=== PATIENT | female | born 1945 | race Asian ===

== ENCOUNTER 2019-04-12 11:23 | Inpatient (IN) | payer OTHER, MEDICAID ==
[~2019-04-12] VITALS: Ht 157.5 cm; Wt 49.9 kg
--- NOTE | 2019-04-12 11:56 | NUR ---
PATIENT AAOX3 BIB [facility] WITH C/O ABDOMINAL PAIN X 5 DAYS. PATIENT IS MANDARIN SPEAKING ONLY- SON IS BEDSIDE. SON STATES MOM HASN'T BEEN FEELING WELL AND HAS NAUSEA BUT NO VOMITING. ABD SOFT, NON DISTENDED, TENDER ON PALPATION. LAST BM WAS THIS MORNING. BREATHING E/U- PATIENT C/O SOB- SATS IN LOW 90S UPON ARRIVAL. PT PLACED ON 3.5 LITERS OF O2 VIA NC. LUNGS CLEAR UPPER AND LOWER LOBES, PT C/O PRODUCTIVE COUGH FOR FOR A FEW DAYS. SKIN WARM, DRY AND INTACT. NO OTHER SS OF DISTRESS NOTED. PT PLACED ON ALL MONITORS FOR FURTHER OBSERVATION. AWAITING MSE.
[2019-04-12 12:53] LABS: CARBON DIOXIDE 24.5 mmol/L (21-32); CHLORIDE SERUM 96 mmol/L (98-107); CREATININE SERUM 0.8 mg/dL (0.6-1.0); GLUCOSE SERUM 152 mg/dL (74-106); POTASSIUM SERUM 3.8 mmol/L (3.5-5.1); SODIUM SERUM 132 mmol/L (136-145)
[2019-04-12 12:57] LABS: ALBUMIN 3.5 g/dL (3.4-5.0); ALKALINE PHOSPHATASE 197 U/L (46-116); ALT/SGPT 61 U/L (14-59); AST/SGOT 74 U/L (15-37); BILIRUBIN TOTAL 0.68 mg/dL (0.20-1.00); LIPASE 49 IU/L (73-393); TOTAL PROTEIN, SERUM 7.3 g/dL (6.4-8.2)
[2019-04-12 12:59] LABS: AMYLASE 17 U/L (25-115)
[2019-04-12 13:02] LABS: BASOPHIL % 0 % (0-2); PLATELET COUNT 195 x10^3mcL (130-400); RED CELL DISTRIBUTION WIDTH 12.9 % (11.5-14.5)
--- NOTE | 2019-04-12 13:10 | NUR ---
PT TAKEN TO CT.
--- NOTE | 2019-04-12 13:32 | NUR ---
PATIENT BROUGHT BACK FROM CT-- BREATHING E/U-- SON BEDSIDE. WILL CONTINUE TO MONITOR.
[2019-04-12 14:16] LABS: UA SPECIFIC GRAVITY 1.015 (1.005-1.035); microscopic required? YES; urine erythrocyte NEGATIVE (NEGATIVE)
--- NOTE | 2019-04-12 14:21 | NUR ---
PT RESTING IN BED WITH NO SIGNS OF DISTRESS AT THIS TIME.
--- NOTE | 2019-04-12 14:59 | NUR ---
U/S BEING DONE BEDSIDE
--- NOTE | 2019-04-12 14:59 | NUR ---
ASSISTED PATIENT ON BED BURKETT-- TOLERATED WELL. WILL CONTINUE TO MONITOR.
--- NOTE | 2019-04-12 16:49 | NUR ---
RECIEVED VERBAL FROM DR FRIAS FOR MED SURG ADMIT ORDERS FOR PATIENT.
[2019-04-12] MEDS ORDERED: LOSARTAN POTASS50 M1 PO (16:55)
[2019-04-12] MEDS ORDERED: ALENDRONATE SOD70 M3 PO (16:55)
[2019-04-12] MEDS ORDERED: LYRICA50 M1 PO (16:56)
[2019-04-12] MEDS ORDERED: TRILIPIX135 M1 PO (16:56)
--- NOTE | 2019-04-12 17:39 | NUR ---
REPORT GIVEN TO HOWARD BARTLETT FOR CONTINUED CARE OF PATIENT.
--- NOTE | 2019-04-12 18:02 | NUR ---
RECEIVED PT FROM ED VIA GUERNEY, CAME IN DUE TO ABDOMINAL PAIN/NAUSEA/VOMITING AND POOR APPETITE X3-4 DAYS. AAXO4. ABLE TO FOLLOW COMMANDS. NO SOB NOTED, LUNG SOUNDS DIMINISHED ON AUSCULTATION, O2 SAT-98%, ON 2LPM/NC. W/ PRODUCTIVE COUGH, ABLE TO EXPECTORATE WHITE PHLEGM, SCANT IN AMOUNT. C/O DRY MOUTH. DENIES CHEST PAIN/PRESSURE. STATED THAT SHE HAS 2/10 EPIGASTRIC PAIN DESCRIBED ACHING AND UNCOMFORTABLE. DENIES NAUSEA/VOMITING. BOWEL SOUNDS ACTIVE. ABDOMEN IS SOFT. W/ PERIODS OF URINE INCONTINENT. 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 C/O BACK PAIN WORSE ON MOVEMENT, GENERALIZED WEAKNESS NOTED. IV SITE ON THE LAC IS PATENT AND INTACT. SIDE RAILS UPX2. CALL LIGHT ON REACH. HOB ELEVATED AT 30 DEG. PT'S SON AT BEDSIDE. ENDORSED TO PRIMARY NURSE TRI FOR CONTINUITY OF CARE
[2019-04-12 18:28] VITALS: BP 143/89
[2019-04-12 18:32] VITALS: Ht 157.5 cm; Wt 49.9 kg
--- NOTE | 2019-04-12 18:46 | NUR ---
PATIENT RESTING IN BED AT THIS TIME WITH FAMILY MEMBER TRANSLATING AT BEDSIDE. NO COMPLAINTS. STARTED IV FLUIDS. CALL LIGHT WITHIN REACH, WILL ENDORSE TO HOISTER
[2019-04-12 19:48] VITALS: BP 116/73
--- NOTE | 2019-04-12 21:00 | NUR ---
RECEIVED PT IN BED AAOX4 PT DENY PAIN AT THE MOMENT , ABD SOFT BS ABD TENDER TO TOUCH , BS ACTIVE X4 , LUNG SOUNDS DEMINISHED PRODUCTIVE COUGH NOTED, ON 2L N/C NO RESP DISTRESS NOTED, PIV INTACT INFUSING WELL . CALL LIGHT WITHIH PT'S REACH . WILL CON.T TO MONITOR PT CLOSELY.
[2019-04-13 05:07] VITALS: BP 107/69
[2019-04-13 06:41] LABS: ALKALINE PHOSPHATASE 146 U/L (46-116); ALT/SGPT 49 U/L (14-59); AST/SGOT 57 U/L (15-37); BILIRUBIN TOTAL 0.5 mg/dL (0.20-1.00); CALCIUM 7.5 mg/dL (8.5-10.1); CARBON DIOXIDE 21.7 mmol/L (21-32); CHLORIDE SERUM 104 mmol/L (98-107); CREATININE SERUM 0.8 mg/dL (0.6-1.0); GLUCOSE SERUM 98 mg/dL (74-106); SODIUM SERUM 139 mmol/L (136-145); TOTAL PROTEIN, SERUM 6.6 g/dL (6.4-8.2)
--- NOTE | 2019-04-13 07:00 | NUR ---
Received report from advertising consultant nurse patient a&o x4 azeri speaking brother at bedside for translation. IV on LAC patent and intact PT denies any pain at this time. CHG wipes complete OR checklist done. Waiting for surgeon consult. Patient NPO since 1800 yesterday. Patient denies chest pain at this time. All questions and concerns addressed. Assessment complete and documented. Bed inlowest position and call light within reach. Will continue to monitor.
[2019-04-13 07:15] LABS: ALBUMIN 2.7 g/dL (3.4-5.0)
[2019-04-13 07:32] LABS: BASOPHIL % 0.3 % (0-2); PLATELET COUNT 177 x10^3mcL (130-400); RED CELL DISTRIBUTION WIDTH 13.1 % (11.5-14.5)
--- NOTE | 2019-04-13 08:00 | NUR ---
REPORT GIVEN TO OR NURSE
[2019-04-13 08:11] VITALS: BP 103/68
--- NOTE | 2019-04-13 08:33 | NUR ---
DR CARVAJAL AT BEDSIDE EXPLAINIG PROCEDURE USING BAR EXAMINER PHONE.
--- NOTE | 2019-04-13 08:50 | NUR ---
PATIENT WENT TO OR FOR PROCEDURE VIA GURNEY WITH TECH
--- NOTE | 2019-04-13 11:45 | NUR ---
PATIENT BACK FROM PROCEDURE V/S 110/72 HR 62 02 92% 2L NC DENIES SOB SAT PATIENT ALL THE WAY UP AND INSTRUCTED HER TO TAKE DEEP BREATHES, RR 17 TEMP 98.6 07/16 PAIN OFFERED MED PER MAR FOR MODERATE PAIN PATIENT REFUSED STATED "IT'S OK" REPOSITIONED PATIENT AND DIMMED LIGHTS FOR COMFORT. BED IN LOWEST POSITION CALL LIGHT WITHIN REACH. WILL CONTINUE TO MONITOR. SON AT BEDSIDE.
[2019-04-13 12:15] VITALS: BP 96/57
--- NOTE | 2019-04-13 13:45 | NUR ---
PATIENT LYING IN BED EATING. PATIENT DENIES ANY PAIN AT THIS TIME. ALL NEEDS ATTENDED TO AT THIS TIME. BED IN LOWEST POSITION CALL LIGHT WITHIN REACH. WILL CONTINUE TO MONITOR.
--- NOTE | 2019-04-13 14:00 | NUR ---
PATIENT LYING IN BED WITH DAUGHTER AT BEDSIDE. PATIENT C/0 5/10 PAIN ADMINISTERED MORPHINE FOR MODERATE PAIN PER MAR. PATIENT TOLERATED WELL NO ADVERSE REACTIONS NOTED. WILL REASSESS PAIN IN 30 MIN. ALL NEEDS ATTENDED TO BED IN LOWEST POSITION CALL LIGHT WITHIN REACH. WILL CONTINUE TO MONITOR.
--- NOTE | 2019-04-13 16:05 | NUR ---
INSTUCTED PATIENT ON INCENTIVE SPIRAOMETER WITH DAUGHTERS HELP. PATIENT DEMONSTRATED PROPER USE. ALL NEEDS ATTENDED TO AT THIS TIME. PATIENT DENIES ANY PAIN AT THIS TIME. ALL NEEDS ATTENDED TO. BED IN LOWEST POSITION CALL LIGHT WITHIN REACH. WILL CONTINUE TO MONITOR.
[2019-04-13 16:35] VITALS: BP 103/59
--- NOTE | 2019-04-13 18:30 | NUR ---
PATIENT LYING IN BED WITH EYES CLOSED DENIES ANY PAIN AT THIS TIME. PER DR REQUEST FOR REPEAT CHEST X RAY DUE TO CONGESTED COUGH DR SHADE RAJAN FOR AM WILL PROCEED WITH ORDER. ALL QUESTIONS AND CONCERNS ADDRESSED AT THIS TIME. BED IN LOWEST POSITION CALL LIGHT WITHIN REACH. WILL ENDORSE CARE TO NIGHT NURSE. IN PATENT ON LAC NO REDNESS OR EDEMA. PATIENT ON 2L NC NO SOB NOTED.
--- NOTE | 2019-04-13 19:30 | NUR ---
PT RECIEVED FROM DAY NURSE. PT RSTING IN BED AT THIS TIME. FAMILY AT BEDSIDE. DENIES PAIN OR DISCOMFORT. A/O X4, CALM AND COOPERATIVE. MED/SURG, DENIES CP, NV, DIZZINESS, OR PALAPATATIONS. BREATHING E/U ON 2L NC. DENIES SOB AT THIS TIME. ABD SOFT AND ROUND, DENIES PAIN TO PALPATION. GENERALIZED WEAKNESS, AMBULATES WITH WALKER AT HOME. 4 SURGICAL INC TO ABD, COVERED WITH DERMABOND,CDI. LAC IV. DCI. BED AT LOWEST POSITION. CALL LIGHT WITHIN REACH. WILL CONTINUE TO MONITOR.
[2019-04-13 21:03] VITALS: BP 115/73
--- NOTE | 2019-04-14 | NUR ---
PT RESTING IN BED AT THIS TIME. DENIES PAIN OR DISCOMFORT. BREATHING E/U ON 2L NC. BED AT LOWEST POSITION. CALL LIGHT WITHIN REACH. WILL CONTINUE TO MONITOR.
[2019-04-14 04:37] VITALS: BP 113/89
[2019-04-14 06:37] LABS: BASOPHIL % 0.1 % (0-2); PLATELET COUNT 185 x10^3mcL (130-400); RED CELL DISTRIBUTION WIDTH 13.4 % (11.5-14.5)
--- NOTE | 2019-04-14 06:41 | NUR ---
PT RESTING IN BED AT THIS TIME. DENIES PAIN RO DISCOMFORT. BREATHIGN E/U ON 2L NC. NO SIGNS OF ACUTE DISTRESS AT THIS TIME. ALL NEEDS AND CONCERNS ADDRESSED THIS SHIFT. BED AT LOWEST POSITION. CALL LIGHT WITHIN REACH. WILL CONTINUE TO MONITOR.
--- NOTE | 2019-04-14 07:00 | NUR ---
RECEIVED REPORT AT BEDSIDE BY DAYTON LAWRENCE, PT RESTING IN BED IN NO ACUTE DISTRESS
[2019-04-14 07:07] LABS: CALCIUM 7.7 mg/dL (8.5-10.1); CARBON DIOXIDE 21.2 mmol/L (21-32); CHLORIDE SERUM 107 mmol/L (98-107); CREATININE SERUM 0.6 mg/dL (0.6-1.0); GLUCOSE SERUM 120 mg/dL (74-106); MAGNESIUM 1.7 mg/dL (1.8-2.4); SODIUM SERUM 138 mmol/L (136-145)
--- NOTE | 2019-04-14 07:26 | NUR ---
PT RESTING IN BED, IN NO ACUTE DISTRESS, VERBAL, MATTHIAS TO MAKE NEEDS KNOWN, CALM AND COOPERATIVE, LOW FAT DIET, AXOX4, NO FACIAL DROOP/SLURRED SPEECH, PERRLA, NO REDNESS/DRAINAGE, DENIED HAYES/DIZZINESS, RESP EVEN AND NON-LABORED, 2L/MIN, NC, 96%, LUNG DIM BLL, EPISODES OF PRODUCTIVE COUGH, CHEST RISE SYMMETRICALLY, MEDSURG, DENIED CP/PALPITATION, DENIED PAIN/DISCOMFORT, ABD FLAT AND NON-TENDER TO TOUCH, BS ACTIVE X 4, NOTED PASSING GAS AND BURP, NO BM AT THIS TIME, PALP PULSES, CAP REFILL <2S, SKIN C/D/W, NON-AMBULATORY IN HOSPITAL, USED FWW AT HOME, SEE SKIN ASSESSMENT, EQUAL HAND METAPHYSICIAN, INCONTINENT AT TIMES, IV PATENT AND FLUSHING WELL, DRESSING CDI, HEPLOCKED, STANDARD PRECAUTION, ALL NEEDS ADDRESSED, SAFERTY PROTOCOL FOLLOWED, CONTINUE TO MONITOR
--- NOTE | 2019-04-14 09:06 | NUR ---
AM MEDs GIVEN PER MD ORDER VIA EMAR, TOLERATED WELL, NO ASE NOTED AT THIS TIME, EDUCATE DPT R/T MEDs, ASE AND MONITOR, VERBALLY UNDERSTANDING, NO FURTHER CONCERN NEEDED AT THIS TIME, SAFETY PROTOCOL FOLLOWED, CONTINUE TO MONITOR
[2019-04-14 09:19] VITALS: BP 144/72
--- NOTE | 2019-04-14 09:29 | NUR ---
PT REFUSED CXR X 2 TIMES, SON AT BEDSIDE, CHARGE NURSE JOSSE MADE AWARE
--- NOTE | 2019-04-14 10:19 | NUR ---
VOID X 1, SON AT BEDSIDE, RA, TOLEARTED WELL, 93%, EPISODES OF COUGH, DENIED PAIN/ DISTRESS, CONTINUE TO MONITOR
--- NOTE | 2019-04-14 12:01 | NUR ---
BM X 1, SMALL, REPORTED NO PAIN/DISCOMFORT AT THIS TIME, SON AT BEDSIDE, ALL NEEDS ADDRESSED, SAFETY PROTOCOL FOLLOWED, CONTINUE TO MONITOR
[2019-04-14 12:13] VITALS: BP 108/79
--- NOTE | 2019-04-14 12:15 | NUR ---
PT REPORTED PASSING GAS, NO BM AT THIS TIME, REPORT NO DISCOMFRT/PAIN, REFUSED TO GET UP AND USE BSC, BEDPAN USED PER PT REQUEST, SON AT BEDSIDE MADE AWARE, CHARGE NURSE JOSSE MADE AWARE
--- NOTE | 2019-04-14 13:45 | NUR ---
DR CROWLEY MADE AWRE OF PT UPDATED CURRENT CONDITION, REFUSAL OF CXR AND TACHYCARDIA, SAID WILL SEE PT AND MADE DECISION LATER, CHARGE NURSE JOSSE MADE AWARE, SON AT BEDSIDE MADE AWARE AND TRANSLATE TO PT, PT VERBALLY UNDERSTANDING
--- NOTE | 2019-04-14 14:38 | NUR ---
PHYSICAL THERAPY NOTE ATTEMPTED FOR PHYSICAL THERAPY EVAL, PATIENT REFUSED EVAL SECONDARY PAIN AND DIZZINESS, SON AT THE BED SITE ENCOURAGED HER FOR OOB; PATIENT REFUSED. ENRIQUE RN MADE AWARE.
--- NOTE | 2019-04-14 16:03 | NUR ---
PT REFUSED TO USE I.S., ENCOURAGED AND EXPLAINED TO PT BENEFIT OF USING I.S. TO PREVENT PNA, STILL REFUSED, SON AT BEDSIDE, WILL CONTINUE TO EDUCATE AND ENCOURAGE PT TO USE I.S., CHARGE NURSE JOSSE MADE AWARE
--- NOTE | 2019-04-14 16:24 | NUR ---
SEEN BY DR TAN, NEW ORDER OBTAINED, PT AND SON AT BEDSIDE MADE AWARE, QUESTION ASKED AND ANSWERED, NO FURTHER CONCERN NEEDED WHEN ASKED, PT RESTING IN BED IN NO ACUTE DISTRESS, CONTINUE TO MONITOR
--- NOTE | 2019-04-14 16:46 | NUR ---
PT RESTING IN BED, IN NO ACUTE DISTRESS, SON AND PT MADE AWARE OF NEW ORDER D/T PT REFUSED PT EVAL, PT REFUSED I.S., ENCOURAGED TO USE I.S. FOR PNA PREVENTION, STILL REFUSED, DR CROWLEY MADE AWARE, ALL NEEDS ADDRESSED AT THIS TIME, SAFETY PROTOCOL FOLLOWED, CONTINUE TO MONITOR
[2019-04-14 16:47] VITALS: BP 119/68
--- NOTE | 2019-04-14 17:18 | NUR ---
PT RESTING IN BED, IN NO ACUTE DISTRESS, SON AT BEDSIDE, VERBAL, ABLE TO MAKE NEEDS KNOWN, STILL REFUSED TO USE I.S. PER MD ORDER, WILL CONTINUE TO EDUCATE AND ENCOURAGE PT, IV PATENT AND FLUSHING WELL, DRESSING CDI, RESP EVEN, NO SOB AT THIS TIME, SKIN C.D.W, ALL NEEDS ADDRESSED, SAFETY PROTOCOL FOLLOWED, WILL ENDORSE TO ONCOMING RN
--- NOTE | 2019-04-14 18:13 | NUR ---
PT REPORTED N/V, REFUSED TO BE MEDICATED W/ PRN MEDS PER MD ORDER VIA EMAR, EDUCATED PT BENEFIT OF HAVING MEDICATION TO RELIEF DISCOMFORT, STILL REFUSED, SON AT BEDSIDE MADE AWARE, CHARGE NURSE JOSSE MADE AWARE, CONTINUE TO MONITOR
--- NOTE | 2019-04-14 19:30 | NUR ---
PT RECIEVED FROM DAY NURSE. PT RESTING IN BED AT THIS TIME. STATES FEELINGS OF N/V. WILL MEDICATE WITH PRN ZOFRAN. A/O X4, CALM AND COOPERATIVE. PT MS, DENIES CP, DIZZINESS, AND PALPATATIONS. PALPABLE PULSES, NO EDEMA NOTED AT THIS TIME. BREATHING E/U, AUDIBLE WHEEZE NOTICED. ON 2L NC, DENIES SOB. PRODUCTIVE COUGH PRESENT AT THIS TIME. ABD SOFT AND ROUND, S/P [employer] DAY TWO. 4 INCISIONS NOTED, COVERED WITH DERMABOND. CDI. IV TO LAC. CDI. BED AT LOWEST POSITION. CALL LIGHT WITHIN REACH. WILL CONTINUE TO MONITOR.
[2019-04-14 20:08] VITALS: BP 132/87
--- NOTE | 2019-04-15 00:30 | NUR ---
PT DAUGHTER AT BEDSIDE REQUESTING CHEST XRAY FOR PATIENT. INFORMED PT MD WILL BE NOTIFIED IN THE MORNING. PT RESTING IN A POSITION OF COMFORT AT THIS TIME. WILL CONTINUE TO MONITOR.
[2019-04-15 05:50] VITALS: BP 127/79
--- NOTE | 2019-04-15 06:23 | NUR ---
PT RESTING IN BED AT THIS TIME. DENIES PAIN OR DISCOMFORT. NO SIGNS OF ACUTE DISTRESS NOTED. ALL NEEDS AND CONCERNS ADDRESSED THIS SHIFT. WILL ENDORSE TO DAY NURSE.
[2019-04-15 07:06] LABS: PLATELET COUNT 246 x10^3mcL (130-400); RED CELL DISTRIBUTION WIDTH 13.5 % (11.5-14.5)
[2019-04-15 07:11] LABS: BASOPHIL % 0 % (0-2)
--- NOTE | 2019-04-15 07:30 | NUR ---
PATIENT LYING IN BED A&O X4, DENIES SOB NO S/S OF RESPIRATORY DISTRESS, RUL FINE CRACKELS AUSCULTATED LEFT LOBE WHEEZES HEARD THROUGHOUT. CONGESTED COUGH NOTED CLEARED BY PATIENT. ON 2L NC 93% PENDING REPEAT CHEST XRAY. PATIENT REFUSES TO MOVE SCD APPLIED WILL ADMINISTER LOVENOX PER MAR. GENERALIZED WEAKNESS NOTED. ABD SOFT AND FLAT ACTIVE SOUNDS HEARD. 4 INC ON ABD WITH DERMABOND C,D,I. IV ON LAC INTACT CLEAN AND DRY. ALL NEEDS ATTENDED TO AT THIS BED IN LOWEST POSITION CALL LIGHT WITHIN REACH. WILL CONTINUE TO MONITOR.
[2019-04-15 07:44] LABS: ALBUMIN 2.5 g/dL (3.4-5.0); ALKALINE PHOSPHATASE 113 U/L (46-116); ALT/SGPT 38 U/L (14-59); AST/SGOT 47 U/L (15-37); CALCIUM 8.1 mg/dL (8.5-10.1); CHLORIDE SERUM 105 mmol/L (98-107); CREATININE SERUM 0.5 mg/dL (0.6-1.0); GLUCOSE SERUM 107 mg/dL (74-106); POTASSIUM SERUM 3.4 mmol/L (3.5-5.1); SODIUM SERUM 138 mmol/L (136-145); TOTAL PROTEIN, SERUM 6.2 g/dL (6.4-8.2)
[2019-04-15 08:25] VITALS: BP 151/86
--- NOTE | 2019-04-15 09:04 | NUR ---
ADMINISTERED SCHEDULED MED PER JUL PATIENT TOLERATED WELL NO ADVERSE REACTIONS NOTED. PATIENT REFUSED TO EAT BREAKFAST STATED "I ONLY EAT ITALIAN FOOD" OFFERED DIFFERENT CHOICES PATIENT REFUSED ALL. PATIENT DENIES SOB AT THIS TIME. ENCOURAGED PATIENT TO SIT UP AND MOVE PATIENT REFUSED ALL. PATIENT DOES REPOSITION SELF INDEPENDENTLY. ALL NEEDS ADDRESSED AT THIS TIME. BED IN LOWEST POSITION CALL LIGHT WITHIN REACH. SON AT BEDSIDE. WILL CONTINUE TO MONITOR.
[2019-04-15 12:00] VITALS: BP 121/68
--- NOTE | 2019-04-15 12:01 | NUR ---
PATIENT LYING IN BED DENIES ANY PAIN OR SOB. ASSISSTED PATIENT TO REPOSITION. PATIENT TOLERATED WELL. SON AT BEDSIDE. BED IN LOWEST POSITION CALL LIGHT WITHIN REACH. ALL NEEDS ATTENDED TO. WILL CONTINUE TO MONITOR.
--- NOTE | 2019-04-15 13:05 | NUR ---
X RAY COMPLETE PATIENT TOLERATED WELL
--- NOTE | 2019-04-15 16:01 | NUR ---
PATIENT STANDING UP WITH WALKER NO S/S OF DISTRESS NOTED. PATIENT TOLERATING WELL. C/O NAUSEA ADVISED PATIENT TO RELAX AND BREATHE THROUGH. PATIENT STEADY AND GENERALIZED WEAKNESS NOTED. ALL NEEDS ATTENDED TO AT THIS TIME. BED IN LOWEST POSITION CALL LIGHT WITHIN REACH. WILL CONTINUE TO MONITOR.
[2019-04-15 16:33] VITALS: BP 122/66
--- NOTE | 2019-04-15 18:31 | NUR ---
PATIENT LYING IN BED WITH EYES CLOSED PATIENT C/O ABD DISCOMFORT OFFERRED PAIN MED PER MAR PATIENT REFUSED. REPOSITIONED PATIENT AN DDIMMED LIGHTS FOR COMFORT. IV ON LAC PATENT AND INTACT NO REDNESS OR EDEMA NOTED. NO S/S OR RESPIRATORY DISTRESS NOTED . PATIENT DENIES SOB AT THIS TIME. ALL NEEDS ATTENDED TO. SAFETY PRECAUTIONS IN PLACE SON AT BEDSIDE. WILL ENDORSE CARE TO [facility].
--- NOTE | 2019-04-15 19:54 | NUR ---
WILL BEATRICE RECEIVED AWAKE IN BED, FAMILY AT BEDSIDE VERY SUPPORTIVE OF PATIENT'S CURRENT PLAN OF CARE. RESPIRATION EVEN AND UNLABORED. IV SITE AT THE LAC LEAKING AND SWOLLEN, IV REMOVED ANF PRESSURE DRESSING APPLIED. RESTART A NEW IV ACCESS TO TJE RIGHT FOREARM USING G#22 ON FIRTS ATTENPT WITH GOOD BLOOD FLOW REURN. N ATBN OVPB FOR MANAGEMENT OF UTI AND PNEUMONIA ORDERED.
[2019-04-15 21:27] VITALS: BP 112/65
--- NOTE | 2019-04-15 23:00 | NUR ---
IV ACCESS AT THE LAC LEAKING WITH REDNESS AND SWIOLLEN WITH DISCOMFORT. NEW IV ACCESS STARTED AT THE RIGHT LOWER FOREARM WITH GOOD BLOOD FLOW RETURN. PT TOLERATED PROCEDURE WELL.
--- NOTE | 2019-04-16 | NUR ---
EYES CLOSED, NO FACIAL GRIMACING NOTED. RESPIRATION EVEN AND UNLABORED. ABLE TO SLEEP AT SHORT INTERVAL. CALL LIGHT WITHIN REACH.
[2019-04-16 05:42] VITALS: BP 122/65
--- NOTE | 2019-04-16 05:49 | NUR ---
NO ADVERSE REACTION NOTED FROM ATB THERAPY. ENCOURAGE DO DEEP BREATHING AND COUGHING EXERCISES, PT RELUCTANT TO DO SO. KEPT CLEAN AND DRY. ALL NEEDS ATTENDED.
--- NOTE | 2019-04-16 08:10 | NUR ---
REPORT TAKEN FROM MANAGER INVENTORY MANAGEMENT NURSE AT THE BEDSIDE, PATIENT DOES NOT SPEAK TANZANIAN, ABLE TO MAKE NEEDS KNOWN WITH HAND GESTURES. PATIENT ON 4 LITERS OF O2 AT THIS TIME, ENCOURAGED TO AMBULATE AND TAKE DEEP BREATHS. PATIENTS O2 SAT IS 91 AT THIS TIME, WILL CONTINUE TO MONITOR.
[2019-04-16 08:25] LABS: CALCIUM 8.3 mg/dL (8.5-10.1); CARBON DIOXIDE 23.8 mmol/L (21-32); CHLORIDE SERUM 106 mmol/L (98-107); CREATININE SERUM 0.6 mg/dL (0.6-1.0); GLUCOSE SERUM 113 mg/dL (74-106); POTASSIUM SERUM 3.5 mmol/L (3.5-5.1); SODIUM SERUM 141 mmol/L (136-145)
[2019-04-16 08:27] LABS: BASOPHIL % 0.1 % (0-2); PLATELET COUNT 271 x10^3mcL (130-400)
[2019-04-16 08:45] VITALS: BP 120/65
[2019-04-16 11:06] VITALS: BP 120/65
[2019-04-16 11:11] LABS: BILIRUBIN DIRECT 0.15 mg/dL (0.0-0.2); BILIRUBIN TOTAL 0.4 mg/dL (0.20-1.00)
[2019-04-16 11:13] LABS: ALBUMIN 2.4 g/dL (3.4-5.0)
[2019-04-16 12:30] VITALS: BP 120/80
[2019-04-16 17:03] VITALS: BP 119/71
--- NOTE | 2019-04-16 19:20 | NUR ---
RECEIVED REPORT FROM KATIE. ASSUMING ALL CARE
[2019-04-16 21:13] VITALS: BP 135/77
--- NOTE | 2019-04-16 21:28 | NUR ---
PT C/O NAUSEA, PT MEDICATED WITH ZOFRAN 4 MG IVP PER EMAR
--- NOTE | 2019-04-16 21:31 | NUR ---
PT C/O ACHING BACK PAIN RATED 7/10. PT MEDICATED WITH NORCO PER EMAR.
--- NOTE | 2019-04-17 00:15 | NUR ---
PT IS SLEEPING, EASILY AROUSABLE. BREATHING IS E/U ON 4 LPM VIA NC. RISE AND FALL OF CHEST SYMMETRIC. NO S/S OF ACUTE DISTRESS NOTED. WILL CONT TO MONITOR
[2019-04-17 05:02] VITALS: BP 141/72
--- NOTE | 2019-04-17 06:44 | NUR ---
PT IS SLEEPING, EASILY AROUSABLE TO VERBAL STIMULI. BREATHING IS E/U ON 4 L VIA NC. RISE AND FALL OF CHEST SYMMETRIC. RW IV INTACT/SECURED, SALINE LOCKED. NO S/S OF ACUTE DISTRESS NOTED. BED IN LOW POSITION. CALL LIGHT IN REACH. WILL CONT TO MONITOR
--- NOTE | 2019-04-17 07:15 | NUR ---
RECEIVED PT FROM NIGHT NURSE. PT IS LAYING DOWN IN BED WITH HOB UP RESTING WITH EYES CLOSED. PT LOOKS TO BE IN NO ACUTE DISTRESS AT THIS TIME. RESPIRATIONS EVEN AND UNLABORED ON 4L NC. SURGICAL INCISIONS TO ABD ARE CDI. IV SITE PATENT WITH NO SIGNS OF ERYTHEMA OR SWELLING. CALL LIGHT WITHIN REACH. WILL CONTINUE TO MONITOR.
--- NOTE | 2019-04-17 07:15 | NUR ---
REPORT GIVEN TO CURTIS LAWRENCE. ALL QUESTIONS/CONCERNS ADDRESSED. ENDORSING ALL CARE
[2019-04-17 09:30] VITALS: BP 142/82
--- NOTE | 2019-04-17 09:45 | NUR ---
PT IS LAYING DOWN IN BED WITH HOB UP RESTING. PT FAMILY MEMBER AT BEDSIDE. INSTRUCTED PT AND FAMILY MEMBER ON THE USE OF THE INCENTIVE SPIROMETER, PT DEMOSTRATED UNDERSTANDING OF INCENTIVE SPIROMETER. PERFORMED ACTIVE ROM EXCERSIZES OF BUE AND BLE. ADDED HUMIDIFICATION TO O2 NASAL CANNULA TO PREVENT DRYNESS. CALL LIGHT WITHIN REACH. WILL CONTINUE TO MONITOR.
--- NOTE | 2019-04-17 11:15 | NUR ---
ASSISTED PT WITH INCENTIVE SPIROMETER. FAMILY MEMBER AT BEDSIDE ASSISTING PT WITH ENCOURAGEMENT OF USING INCENTIVE SPIROMETER. PT PERFORMED INCENTIVE SPIROMETER 10 TIMES. ASSISTED PT WITH PERFORMING ACTIVE ROM EXCERSIZES OF BUE AND BLE. FAMILY MEMBER AT BEDSIDE. WILL CONTINUE TO MONITOR.
--- NOTE | 2019-04-17 12:15 | NUR ---
WORKED WITH PT WITH INCENTIVE SPIROMETER. FAMILY MEMBER PRESENT TO ENCOURAGE PT WITH USING INCENTIVE SPIROMETER. PT PERFROMED 10 TIMES. ASSISTED AND EDUCATED PT WITH ACTIVE ROM OF BUE AND BLE. FAMILY MEMBER AT BEDSIDE. PT HAD AN EPISODE OF INCONTIENCE. CLEANED PT UP AND MADE COMFORTABLE IN BED. WILL CONITNUE TO MONITOR.
--- NOTE | 2019-04-17 13:58 | NUR ---
ASSISTED PT WITH USING INCENTIVE SPIROMETER. PT PERFROMED INCENTIVE SPIROMETER 10 TIMES. ASSISTED PT WITH PERFROMED ACTIVE ROM OF BUE AND BLE. FAMILY MEMBER AT BEDSIDE ASSISTING WITH EDUCATION AND ENCOURAGEMENT. WILL CONTINUE TO MONITOR.
--- NOTE | 2019-04-17 15:14 | NUR ---
ASSISTED PT WITH USING INCENTIVE SPIROMETER WITH FAMILY MEMBER'S ENCOURAGEMENT. PT PERFORMED IS 10 TIMES. ASSISTED PT WITH ACTIVE ROM TO BUE AND BLE. MADE PT COMFORTABLE IN BED. CALL LIGHT WITHIN REACH. FAMILY MEMBER AT BEDSIDE. WILL CONITNUE TO MONITOR.
[2019-04-17 15:57] VITALS: BP 132/71
--- NOTE | 2019-04-17 16:45 | NUR ---
ASSISTED AND EDUCATED PT TO USE INCENTIVE SPIROMETER. PT PERFORMED IS 10 TIMES AND TOLERATED WELL. ASSISTED AND EDUCATED PT TO PERFORM ACTIVE ROM EXCERSIZES IN BED OF [place], PT TOLERATED WELL AND AGREEABLE. PT LOOKS TO BE IN NO ACUTE DISTRESS AT THIS TIME. MADE PT COMFORTABLE IN BED. FAMILY MEMBER AT BEDSIDE. WILL CONTINUE TO MONITOR.
--- NOTE | 2019-04-17 18:02 | NUR ---
INFORMED PT AND FAMILY MEMBER OF POSSIBLE TRANSPORT AT [address] CROWLEY DISCHARGE ORDER. INFORMED PT THAT TRANSPORT COULD ALSO BE TOMORROW IF PT NOT CLEARED BY DR. CROWLEY TODAY. PT AND FAMILY MEMBER AGREEABLE AND VERBALIZED UNDERSTANDING.
--- NOTE | 2019-04-17 18:08 | NUR ---
PT IS LAYING DOWN IN BED WITH HOB UP. PT LOOKS TO BE IN NO ACUTE DISTRESS AT THIS TIME AND STATES THAT SHE HAS PAIN WHEN SHE MOVES BUT DOES NOT NEED PAIN MEDICATION AT THIS TIME BUT STATES MIGHT NEED PAIN MEDICATION BEFORE SHE IS TRANSPORTED. IV SITE PATENT WITH NO SIGNS OF ERYTHEAM OR SWELLING. RESPIRATIONS EVEN AND UNLABORED ON 4L NC WITH HUMIDIFICATION. FAMILY MEMBER AT BEDSIDE. CALL LIGHT WITHIN REACH. WILL ENDORSE TO ONCOMING SHIFT.
--- NOTE | 2019-04-17 18:16 | NUR ---
P.T. NOTES Pt DECLINED TO PARTICIPATE W/ P.T, SON IN ROOM & SUPPORTIVE, ABLE TO COMMUNICATE, SON STATES Pt MIGHT BE TRANSFERRED TODAY, DID NOT WANT TO EAT, SON WILL TRY TO ENCOURAGE PATIENT LATER; RN AWARE, PER NURSE, SHE HELPED PATIENT W/ SOME BED EXERCISES & I.S. EARLIER; CALL TAYLOR, PHONE, TABLE IN REACH, BED ALARM ON, ALL LINES INTACT; APPRECIATIVE; FF UP IF NOT D/C'd.
[2019-04-17 19:24] VITALS: BP 133/72
--- NOTE | 2019-04-17 22:24 | NUR ---
RECEIVED PT IN BED AAOX4 N O ACUTE DISTRESS NOTED LUNG SOUNDS WITH RHONCHI AND CRACKLES , ON 4L N/C SAT WELL NO RESP DISTRESS NOTED, WET/MOIST COUGH NOTED, PT REFUSED TO USE IS AT THE MOMENT , FAMILY AT THE BEDSIDE AT THE MOMENT. HL TO RFA INTACT , MEDICATED PT FPR PAIN AT 2120 WITH NORCO 5/325MG PO . PT'S DISCHARGED TO [facility] REPORT GIVEN TO KHAI PALUMBO CALLED THEY WILL PICK PT UP AT 1230, FAMILY AND CHARGE NURSE AWARE .
--- NOTE | 2019-04-18 01:31 | NUR ---
SPOKE TO ALEX FROM [facility] , STATED ETA WILL BE [phone]. INFORMED [facility] NURSE.
--- NOTE | 2019-04-18 04:25 | NUR ---
DISCHARGED PT TO [facility]IA [facility] , HL INTACT , SON AT THE BEDSIDE , SPOKE TO MADELYN THAT PT'S ON THE WAY , PT;S IN NO DISTRESS UPON DISCHARGE .
== END 2019-04-18 04:24 | DRG 417 ==
LOC: ED 11:23 → DU 16:49 → MU 16:49
PROVIDERS: Emergency Medicine; Internal Medicine Pulmonary Disease; Surgery; ADMIT Internal Medicine Pulmonary Disease
PROC: 0FT44ZZ Resection of Gallbladder, Percutaneous Endoscopic Approach (ICD-10-PCS; principal; 2019-04-13 09:00)
DX: K80.00 Calculus of gallbladder with acute cholecystitis without obstruction (principal); J96.01 Acute respiratory failure with hypoxia; I50.31 Acute diastolic (congestive) heart failure; N39.0 Urinary tract infection, site not specified; J40 Bronchitis, not specified as acute or chronic; E86.0 Dehydration; I11.9 Hypertensive heart disease without heart failure; M81.0 Age-related osteoporosis without current pathological fracture; E78.5 Hyperlipidemia, unspecified; Z68.20 Body mass index [BMI] 20.0-20.9, adult
CPT/HCPCS: 83880; 94150; 97116-GP; G0378; J0330; J0696; J1650; J1940; J2001; J2270; J2405; J2704; J2710; J3010; J3480; J3490; J7030; J7120; Q0092